=== PATIENT | male | born 1965 | race Caucasian/White ===

== ENCOUNTER 2020-02-23 11:18 | Outpatient (REF) | payer MEDICAID, SELFPAY ==
[2020-02-23 19:34] LABS: Anion Gap 8.9 mmol/L (3-11); BUN 13 mg/dL (7-18); CO2 27.1 mmol/L (21.0-32.0); CREATININE 0.75 mg/dL (0.70-1.30); Calculated LDL 144 mg/dL (<100); Chloride 102 mmol/L (98-107); Cholesterol 210 mg/dL (<200); Glucose 89 mg/dL (74-106); HDL Cholesterol 55 mg/dL (40-60); Potassium 4.6 mmol/L (3.5-5.1); Sodium 138 mmol/L (136-145); Triglyceride 57 mg/dL (<150)
[2020-02-26 09:58] LABS: Hepatitis C Ab w Rflx HCV PCR Negative (Negative)
== END 2020-02-23 11:38 ==
LOC: LBN 11:18
PROVIDERS: PCP Nurse Practitioner Family; Visit Provider Nurse Practitioner Family
DX: Z11.59 Encounter for screening for other viral diseases (principal); E78.5 Hyperlipidemia, unspecified; Z13.1 Encounter for screening for diabetes mellitus; Z72.0 Tobacco use
CPT/HCPCS: 80048; 80061; 86803

== ENCOUNTER 2023-06-07 06:08 | Day surgery (SDC) | payer MEDICAID, SELFPAY ==
[2023-06-07] VITALS (7 sets, daily range): BP systolic 127–152; BP diastolic 62–107; PULSE 59–67; RESP 10–16; TEMP 36.4–36.7; O2SAT 97–100; BMI 27.8
--- NOTE | 2023-06-07 07:05 | ANES.PREOP_ITS ---
General Info Date of Service Date Performed: 06/07/23 Height: 5 ft 4 in Weight: 73.6 kg Body Mass Index (BMI): 27.8 Surgical Procedure: Operation Date: 06/07/23 07:40 Proposed Procedure Side Surgeon p Micro Laryngoscopy w/Vocal Cord Biopsy Alex Thomson MD Meds Allergies and Home Medications Allergies Allergy/AdvReac Type Severity Reaction Status Date / Time No Known Allergies Allergy Verified 06/07/23 06:28 Home Medication Medication Instructions Recorded fluticasone propionate 50 2 spray intranasal DAILY #16 grams 05/10/23 mcg/actuation nasal spray,suspension Current Visit Medications: Current Medications Generic Name Dose Route Start Last Admin Trade Name Freq PRN Reason Stop Dose Admin Ringer's Solution 1,000 mls @ 80 mls/hr 06/07/23 06:00 IV 07/04/23 23:59 INFUSION TIN Tranexamic Acid 1,000 mg/ 60 mls @ 360 mls/hr 06/07/23 06:00 Sodium Chloride IVPB 07/07/23 05:59 PREOP TIN IV Miscellaneous Supplies 1 each 06/07/23 06:00 Iv Access IV 07/04/23 23:59 DIRECTED TIN Sodium Chloride 0 ml 06/07/23 06:00 Normal Saline Flush 10 Ml Syr IV 07/04/23 23:59 PRN PRN Sodium Chloride 0 ml 06/07/23 06:00 Normal Saline 10 Ml Vial IJ 07/04/23 23:59 DIRECTED PRN Sterile Water 0 ml 06/07/23 06:00 Water,Injection,Sterile 10 Ml Vial IJ 07/04/23 23:59 DIRECTED PRN [facility] Medical History Medical History Hoarseness Essential hypertension (~04/2020) Patient declines medication Hyperlipidemia, unspecified 11/2022 labs: 10-year ASCVD risk = 14.1% (13.6% with previous check) Tobacco use disorder Pipes Surgical History Surgical History Excision, Skin Mass 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 Tobacco Smoking/Tobacco Use Status: Current every day Tobacco Type: pipe Years: 25 Other: prior cigarettes Counseling given: provider counseling Alcohol Alcohol Intake: never Substance Use Substance use: Never Substance use type: does not use Counseling provided: none Vital Signs and Lab Results Vital Signs Most Recent Vital Signs in EMR: Most Recent Vital Signs Temp Pulse Resp BP Pulse Ox 36.7 C 65 16 139/62 99 06/07/23 06:31 06/07/23 06:31 06/07/23 06:31 06/07/23 06:31 06/07/23 06:31 Lab Results Blood Type / Crossmatch: No Data to Display Complete Blood Count: No Data to Display Complete Metabolic Panel: No Data to Display Liver Function Panel: No Data to Display Coagulation Panel: No Data to Display Cardiac Panel: No Data to Display Arterial Blood Gas: No Data to Display Venous Blood Gas: No Data to Display Pancreas Panel: No Data to Display Thyroid Panel: No Data to Display Infectious Disease: No Data to Display Blood Cultures: No Data to Display Toxicology Panel: No Data to Display Anesthesia Assessment and Plan Anesthesia History Personal History: No History of General Anesthesia Family History: No Family History of Anesthesia Complications Exercise Tolerance Exercise Tolerance: Metabolic Equivalents>4 Pertinent Negatives Pertinent Negatives: No Symptoms of GERD Cardiac & Pulmonary Exam Cardiac Exam: Normal S1/S2 Heart Sounds Pulmonary Exam: Clear Bilateral Breath Sounds Implantable Cardiac Device Does patient have a Pacemaker or an ICD?: No Airway Exam Known Difficult Airway: No Mallampati Class: 2 Mouth Opening: Normal (> 3cm) Thyromental Distance: Greater than 3 cm Neck Range of Motion: Full ROM Neck Circumference: Normal Teeth Condition: Removable Dentures/Plates Upper and Removable Dentures/Plates Lower ASA Classification ASA Score: ASA 2 Emergency Case?: No NPO Status NPO Status: NPO Clears >2 hours, Solids >8 hours Anesthesia Plan Resuscitation Status: Full Code Anesthesia Technique: General Anesthesia Airway Planned: Endotracheal Tube Monitors Used: Standard Monitors
[2023-06-07] MEDS: Lactated Ringers 1,000 ML 80 ML IV (07:08)
--- NOTE | 2023-06-07 07:21 | W.PM.DSUDISC ---
Date of service: 06/07/23 Time of Service: 07:22 Discharge Plan Disposition Patient Disposition: Home Condition: Good Discharge Details Reason For Visit: Microlaryngoscopy with biopsy Attending Provider: Alex Thomson Primary Care Provider: Paula Howard Home Meds and New Rx's Prescriptions: No Action fluticasone propionate 50 mcg/actuation spray,suspension 2 spray intranasal DAILY Qty: 16 6RF Rx Instructions: administer into each nostril Discharge Instructions Additional Instructions: My cell phone number is [phone]. Please call with any questions or concerns. If you are unable to reach me and you feel it is an emergency, please call 911 or proceed to the emergency room You may use ibuprofen or Tylenol for any discomfort. No driving for 72 hours. No operating dangerous equipment for 72 hours. No smoking Avoid shouting or whispering or excess speech. Call our office if you do not hear from us within 1 week with regard to pathology results. Referrals: Alex Thomson MD [ [facility] STAFF PHYSICIAN] - (1 month, please call for appointment prior to patient's departure)
--- NOTE | 2023-06-07 08:01 | VOCCOR_PTH ---
PATIENT: Alexis Michaud LOC: [facility] U#:[id number] AGE/SX: 58/M ROOM: RE06/07/[address]: Alex Thomson MD : 1965 BED: DIS: 06/07/2023 SPEC #: [id number] RECD: 06/07/23 12:38 STATUS: ROCKY REQ #: [id number] HUGO: 06/07/23 08:[address]: Alex Thomson DEPT: Surgical Specimen RECD BY: Brenda Weems ENTERED: 06/07/23 12:39 SP TYPE: VOCCOR OTHR DR: Paula Howard APRN Tissues: 1 - VOCAL CORD Procedures: GROSS AND MICRO LEVEL 4 Comments: [id number]
--- NOTE | 2023-06-07 08:09 | W.PM.OP ---
Date of service: 06/07/23 Time of Service: 08:09 Operative Note Operative Note DATE OF PROCEDURE: 06/07/23 PRE-OP DIAGNOSIS: Hoarseness, right vocal cord mass POST-OP DIAGNOSIS: same PROCEDURE: Microlaryngoscopy with right vocal cord biopsy SURGEON: Alex Thomson ANESTHESIA TYPE: General LMA/ETT Refer to Anesthesia Record ESTIMATED BLOOD LOSS: 1 PATHOLOGY: other (Right vocal cord biopsy) COMPLICATIONS: None Patient was transported to: PACU Patient's condition: stable Indications: Patient with a right vocal cord mass and hoarseness. History of tobacco use. Ongoing tobacco use. Options were explained to the family regarding further management. H&P was reviewed. Consent was reviewed. There have been no change. All questions were answered prior to the procedure. He still wished to proceed. 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 This extends toward but not into the ventricle and does not have any extensive subglottic extension. It appears solitary. The remainder of the exam is unremarkable. Procedure Description: After obtaining an adequate level of general endotracheal anesthesia the patient was positioned in the supine position and prepped and draped in appropriate fashion. A [employer] laryngoscope was carefully introduced through the oral cavity and carefully advanced into the larynx, observing the oral cavity, oropharynx, hypopharynx, and larynx. No abnormalities were noted except for the vocal cord lesion as mentioned above. Once this was well positioned to allow access to this mass, the laryngoscope was placed into suspension, and the microscope with a 400 mm lens moved into position. Multiple biopsies were removed from the right vocal cord mass. Bleeding was minimal and self-limited. The vocal ligament was not exposed. Once been accomplished, the wound was inspected for relative hemostasis, and then the laryngoscope taken out of suspension and withdrawn, again revealing no evidence of any secondary malignancy. The patient was then awakened and extubated by anesthesia and taken to recovery room in stable condition. I was present throughout the entire case.
--- NOTE | 2023-06-07 09:28 | W.ANESPOSTOP ---
Postoperative Evaluation Date, Time and Location Date Performed: 06/07/23 Time Performed: 09:28 Patient Location: Day Surgery Unit Vital Signs Most Recent Imported Vital Signs: Most Recent Vital Signs Temp Pulse Resp BP Pulse Ox 36.4 C L 63 16 127/99 H 98 06/07/23 09:15 06/07/23 09:15 06/07/23 09:15 06/07/23 09:15 06/07/23 09:15 Pain Score Most Recent Pain Score: Most Recent Pain Score Pain Level 0 06/07/23 09:15 Assessment Mental Status: Awake (Alert & Oriented to Patient Baseline) Airway and Respiratory Function: Patent airway with normal (patient baseline) respiratory exam Cardiovascular Function: Hemodynamically Stable Hydration Status: Adequately Hydrated Nausea & Vomiting: No Nausea or Vomiting Pain: Pt. Denies Any Pain Peripheral Nerve Block: Patient did not receive a nerve block
== END 2023-06-07 09:30 | disposition home or self-care (01) ==
PROVIDERS: PCP Nurse Practitioner Family; Visit Provider Otolaryngology
PROC: 0CJS8ZZ Inspection of Larynx, Via Natural or Artificial Opening Endoscopic (ICD-10-PCS; CPT 31575; principal; 2023-06-07 07:30)
DX: R49.0 Dysphonia (principal); C32.0 Malignant neoplasm of glottis; F17.290 Nicotine dependence, other tobacco product, uncomplicated; I10 Essential (primary) hypertension; E78.5 Hyperlipidemia, unspecified
CPT/HCPCS: 31536; 88305; J0131; J1100; J2001; J2405; J2704